=== PATIENT | female | born 1965 | race Caucasian/White ===

== ENCOUNTER → 2020-02-07 | Outpatient (CLI) | payer BC ==
[~2020-02-07] MED LIST: CIPRO250 M1 OR; PROAMATINE2.5 MG OR; SPACERCHILD
== END ==
LOC: SJCVCIMAG 09:30
PROVIDERS: ATTEND Internal Medicine Cardiovascular Disease
DX: I08.8 Other rheumatic multiple valve diseases (principal); Z95.0 Presence of cardiac pacemaker